=== PATIENT | male | born 1930 | race African-American/Black ===

== ENCOUNTER 2017-05-01 08:52 | Observation (INO) | payer OTHER ==
[~2017-05-01] VITALS: Ht 165.1 cm; Wt 98.5 kg
[~2017-05-01 08:52] MED LIST: Ascorbic Acid,Ester- PO; BACTRIM,SEPT1 TABLET PO; CLOPIDOGREL75 MG PO; Colace PO; Dulcolax PO; Flomax PO; Folvite PO; Lipitor PO; Oscal 500 w/Vitamin PO; PRINIVIL5 MG PO; Pepcid PO; SIMVASTATIN80 MG PO; Senokot S,Pericolace PO; TAMSULOSIN HCL0.4 MG PO; Theragran PO; Vitamin B-12 PO; Vitamin D PO; ZANTAC150 MG PO; Zestril,Prinivil PO; oxyCODONE PO
[2017-05-01 09:39] LABS: BASOPHIL COUNT 0.1 K/uL (0-0.1); EOSINOPHIL (%) 26.8 % (0-5); EOSINOPHIL COUNT 1.6 K/uL (0-0.3); HEMATOCRIT 39.6 % (38.0-50.0); IMMATURE GRANULOCYTE (%) 0.3 % (0.0-0.7); INSTRUMENT ABS NEUTROPHIL CT 2.2 K/uL; LYMPHOCYTE COUNT 1.5 K/uL (1.0-2.8); MCH 29.1 PG (29.0-34.0); MCHC 31.1 G/DL (30.0-36.0); MCV 93.8 FL (86-99); MEAN PLAT.VOLUME 9.1 uM^3 (9.0-12.4); MONOCYTE (%) 7.6 % (3-12); MONOCYTE COUNT 0.4 K/uL (0-0.8); NEUTROPHIL (%) 37.9 % (45-76); NEUTROPHIL COUNT 2.2 K/uL (1.8-6.4); PLATELET COUNT 197 K/uL (156-360); RBC DIS.WIDTH-CV 13.3 % (11.8-14.6); RBC DIS.WIDTH-SD 45.3 % (39-53); RED BLOOD COUNT 4.22 M/uL (4.00-5.50); WHITE BLOOD COUNT 5.8 K/uL (4.1-10.2)
[2017-05-01 09:54] LABS: CHLORIDE 109 mEq/L (99-109); SODIUM 143 mEq/L (136-147)
[2017-05-01 09:57] LABS: GLUCOSE 96 mg/dL (70-99)
[2017-05-01 09:58] LABS: ANION GAP 6 MEQ/L (2-14)
[2017-05-01 09:59] LABS: TOTAL BILIRUBIN 0.5 mg/dL (0.0-1.0)
[2017-05-01 10:00] LABS: ALKALINE PHOSPHATASE 43 IU/L (3-129); GFR ESTIMATE (CALCULATED) > 59 mL/min/; TROP-I INTERPRETATION NEGATIVE; TROPONIN-I 0.02 ng/mL (0.0-0.30)
[2017-05-01 10:01] LABS: UREA NITROGEN (BUN) 14 mg/dL (9-23)
[2017-05-01 10:35] LABS: D-DIMER ELISA > 4.00 mg/L FEU (< 0.57)
[2017-05-01 15:15] LABS: TROP-I INTERPRETATION NEGATIVE; TROPONIN-I 0.02 ng/mL (0.0-0.30)
[2017-05-01 15:53] VITALS: BP 140/68
[2017-05-01 16:43] LABS: EOSINOPHIL (%) 0.2 % (0-5); HEMATOCRIT 39.3 % (38.0-50.0); IMMATURE GRANULOCYTE (%) 0.6 % (0.0-0.7); INSTRUMENT ABS NEUTROPHIL CT 4.5 K/uL; LYMPHOCYTE COUNT 0.4 K/uL (1.0-2.8); MCH 29.3 PG (29.0-34.0); MCHC 31.3 G/DL (30.0-36.0); MCV 93.6 FL (86-99); MEAN PLAT.VOLUME 8.9 uM^3 (9.0-12.4); MONOCYTE (%) 0.6 % (3-12); NEUTROPHIL COUNT 4.5 K/uL (1.8-6.4); PLATELET COUNT 211 K/uL (156-360); RBC DIS.WIDTH-CV 13.4 % (11.8-14.6)
[2017-05-01 16:53] LABS: INTER. NORMALIZED RATIO 1.1; PROTHROMBIN TIME 11.4 (9.2-11.2); PTT 29.6 (25-32)
[2017-05-01 17:08] LABS: ANION GAP 11 MEQ/L (2-14); CHLORIDE 104 MEQ/L (99-109); GFR ESTIMATE (CALCULATED) 57 mL/min/; POTASSIUM 3.8 MEQ/L (3.7-5.4); SAMPLE HEMOLYSIS CHECK 0; SAMPLE ICTERIC CHECK 0; SAMPLE LIPEMIA CHECK 0; SODIUM 141 MEQ/L (136-147); UREA NITROGEN (BUN) 15 mg/dL (9-23)
[2017-05-01 17:12] LABS: GLUCOSE 172 mg/dL (70-99)
[2017-05-01 17:52] VITALS: BP 142/70
[2017-05-01 18:58] LABS: TROP-I INTERPRETATION NEGATIVE; TROPONIN-I 0.04 ng/mL (0.0-0.30)
[2017-05-01 20:57] LABS: ADD MIUA? YES; BILIRUBIN NEGATIVE; BLOOD SMALL; COLOR YELLOW ((YELLOW)); GLUCOSE (STRIP) NEGATIVE; KETONES NEGATIVE; LEUKOCYTES TRACE; NITRITE NEGATIVE; PROTEIN (STRIP) NEGATIVE; SPECIFIC GRAVITY 1.042 (1.000-1.030)
[2017-05-01] MEDS ORDERED: LISINOPRIL5 MG PO (21:19)
[2017-05-01] MEDS ORDERED: FLOMAX0.4 MG PO (21:20)
[2017-05-01] MEDS ORDERED: ZOCOR80 MG PO (21:21)
[2017-05-01] MEDS ORDERED: FUROSEMIDE20 MG PO (21:22)
[2017-05-01] MEDS ORDERED: PROAIR HFA8.5 GM IH (21:23)
[2017-05-01 21:56] LABS: EPITHELIAL CELLS RARE /HPF; RED BLOOD CELLS RARE /HPF (0-5); WHITE BLOOD CELLS 0-5 /HPF (0-5)
[2017-05-01 21:57] LABS: HYALINE CASTS RARE /LPF; MUCUS TRACE /LPF
[2017-05-01 22:17] LABS: BACTERIA 3+ /HPF; UCUL ADDED? NO
[2017-05-02] VITALS (7 sets, daily range): BP systolic 109–141; BP diastolic 60–72
[2017-05-02 01:29] LABS: TROP-I INTERPRETATION NEGATIVE; TROPONIN-I 0.03 ng/mL (0.0-0.30)
[2017-05-02 05:48] LABS: TROP-I INTERPRETATION NEGATIVE; TROPONIN-I 0.04 ng/mL (0.0-0.30)
[2017-05-02] MEDS ORDERED: CEFDINIR300 MG PO (07:49)
[2017-05-02] MEDS ORDERED: DUONEB 2.5-0.5 M3 ML AEROSOL (07:49)
[2017-05-02] MEDS ORDERED: AZITHROMYCIN500 M1 PO (07:49)
[2017-05-02] MEDS ORDERED: ADVAIR HFA120 INHALA IH (07:49)
[2017-05-02] MEDS ORDERED: AERONEB GO NEB1 EACH MC (07:49)
[2017-05-02] MEDS ORDERED: PREDNISONE10 MG PO (09:10)
[2017-05-03 00:03] VITALS: BP 131/67
[2017-05-03 05:22] VITALS: BP 126/73
[2017-05-03 06:16] LABS: HEMATOCRIT 32.7 % (38.0-50.0); MCH 30.1 PG (29.0-34.0); MCV 91.1 FL (86-99); MEAN PLAT.VOLUME 9.3 uM^3 (9.0-12.4); PLATELET COUNT 195 K/uL (156-360); RBC DIS.WIDTH-CV 13.7 % (11.8-14.6); RBC DIS.WIDTH-SD 46.3 % (39-53); RED BLOOD COUNT 3.59 M/uL (4.00-5.50); WHITE BLOOD COUNT 11.8 K/uL (4.1-10.2)
[2017-05-03 06:43] LABS: ANION GAP 7 MEQ/L (2-14); CHLORIDE 105 MEQ/L (99-109); GFR ESTIMATE (CALCULATED) > 59 mL/min/; GLUCOSE 125 mg/dL (70-99); POTASSIUM 4.5 MEQ/L (3.7-5.4); SAMPLE HEMOLYSIS CHECK 0; SAMPLE ICTERIC CHECK 0; SAMPLE LIPEMIA CHECK 0; SODIUM 138 MEQ/L (136-147)
[2017-05-03 06:44] LABS: UREA NITROGEN (BUN) 29 mg/dL (9-23)
[2017-05-03 07:02] VITALS: BP 128/75
== END 2017-05-03 11:54 | disposition home or self-care (01) ==
LOC: EME 08:52 → EDOF 15:06 → 2EAST 15:06 → 5WEST 15:50 → 2EAST 05-02 13:08
PROVIDERS: Emergency Medicine; Hospitalist; Physician Assistant Medical
DX: J44.1 Chronic obstructive pulmonary disease with (acute) exacerbation (principal); R09.02 Hypoxemia; I12.9 Hypertensive chronic kidney disease with stage 1 through stage 4 chronic kidney disease, or unspecified chronic kidney disease; N18.2 Chronic kidney disease, stage 2 (mild); N39.0 Urinary tract infection, site not specified; E86.0 Dehydration; I71.2 Thoracic aortic aneurysm, without rupture; E78.5 Hyperlipidemia, unspecified; I25.10 Atherosclerotic heart disease of native coronary artery without angina pectoris; I25.2 Old myocardial infarction; Z95.5 Presence of coronary angioplasty implant and graft; Z95.1 Presence of aortocoronary bypass graft; K21.9 Gastro-esophageal reflux disease without esophagitis; Z86.73 Personal history of transient ischemic attack (TIA), and cerebral infarction without residual deficits; H91.90 Unspecified hearing loss, unspecified ear; M79.89 Other specified soft tissue disorders; Z87.891 Personal history of nicotine dependence; Z79.01 Long term (current) use of anticoagulants; I51.7 Cardiomegaly; J90 Pleural effusion, not elsewhere classified
CPT/HCPCS: 71010; 71020; 71275; 80048; 80048 91; 80053; 81003; 83880; 84484; 85025; 85025 91; 85027; 85379; 85610; 85730; 87070; 87077; 87086; 87186; 87205; 93005; 94640; 94640 76; 94760; 99202; 99281; 99285; G0378; J0456; J0696; J1650; J2920; J2930; J7050

== ENCOUNTER 2017-12-31 11:01 | Emergency (ER) | payer OTHER ==
[~2017-12-31] VITALS: Ht 152.4 cm; Wt 98.7 kg
[~2017-12-31 11:01] MED LIST changes: +ADVAIR HFA120 INHALA IH; +AERONEB GO NEB1 EACH MC; +AZITHROMYCIN500 M1 PO; +CEFDINIR300 MG PO; +DUONEB 2.5-0.5 M3 ML AEROSOL; +FLOMAX0.4 MG PO; +FUROSEMIDE20 MG PO; +LISINOPRIL5 MG PO; +PREDNISONE10 MG PO; +PROAIR HFA8.5 GM IH; +ZOCOR80 MG PO
[2017-12-31 12:07] LABS: HEMATOCRIT 38.6 % (38.0-50.0); HEMOGLOBIN 12.5 G/DL (12.5-16.6); MCH 29.6 PG (29.0-34.0); MCHC 32.4 G/DL (30.0-36.0); MCV 91.3 FL (86-99); PLATELET COUNT 187 K/uL (156-360); RBC DIS.WIDTH-CV 13.7 % (11.8-14.6); RBC DIS.WIDTH-SD 46.4 % (39-53); RED BLOOD COUNT 4.23 M/uL (4.00-5.50); WHITE BLOOD COUNT 5.1 K/uL (4.1-10.2)
[2017-12-31 12:18] LABS: CHLORIDE 106 mEq/L (99-109); SODIUM 142 mEq/L (136-147)
[2017-12-31 12:20] LABS: GLUCOSE 90 mg/dL (70-99)
[2017-12-31 12:23] LABS: CREATININE 1.5 mg/dL (0.6-1.3)
[2017-12-31 12:24] LABS: UREA NITROGEN (BUN) 15 mg/dL (9-23)
[2017-12-31 12:29] LABS: GFR ESTIMATE (CALCULATED) 47 mL/min/ (58.99-99999); TROP-I INTERPRETATION NEGATIVE; TROPONIN-I 0.04 ng/mL (0.0-0.30)
[2017-12-31 16:59] LABS: TROP-I INTERPRETATION NEGATIVE; TROPONIN-I 0.04 ng/mL (0.0-0.30)
[2017-12-31 17:56] VITALS: BP 131/81
== END 2017-12-31 18:34 | disposition home or self-care (01) ==
LOC: EME 11:01 → RME 11:01
PROVIDERS: Physician Assistant
DX: M25.551 Pain in right hip (principal); R06.00 Dyspnea, unspecified; M71.21 Synovial cyst of popliteal space [Baker], right knee; I44.0 Atrioventricular block, first degree; I45.4 Nonspecific intraventricular block; I51.7 Cardiomegaly; I10 Essential (primary) hypertension; E78.5 Hyperlipidemia, unspecified; Z87.891 Personal history of nicotine dependence; Z95.5 Presence of coronary angioplasty implant and graft; Z90.49 Acquired absence of other specified parts of digestive tract
CPT/HCPCS: 71046; 73502; 80048; 83880; 84484; 85027; 93005; 93971; 99281; 99284

== ENCOUNTER 2018-05-31 22:39 | Inpatient (IN) | payer OTHER ==
[~2018-05-31] VITALS: Ht 170.2 cm; Wt 89.6 kg
[2018-05-31 23:16] LABS: HEMATOCRIT 35.4 % (38.0-50.0); HEMOGLOBIN 11.6 G/DL (12.5-16.6); MCH 29.9 PG (29.0-34.0); MCHC 32.8 G/DL (30.0-36.0); MCV 91.2 FL (86-99); PLATELET COUNT 183 K/uL (156-360); RBC DIS.WIDTH-CV 14.1 % (11.8-14.6); RBC DIS.WIDTH-SD 46.9 % (39-53); RED BLOOD COUNT 3.88 M/uL (4.00-5.50); WHITE BLOOD COUNT 6.8 K/uL (4.1-10.2)
[2018-05-31 23:22] LABS: INTER. NORMALIZED RATIO 1.1
[2018-05-31 23:24] LABS: PTT 29.2 SEC (25-37)
[2018-05-31 23:28] LABS: CHLORIDE 110 mEq/L (99-109); POTASSIUM 4.3 mEq/L (3.7-5.4); SODIUM 146 mEq/L (136-147)
[2018-05-31 23:29] LABS: GLUCOSE 98 mg/dL (70-99)
[2018-05-31 23:33] LABS: CREATININE 1.6 mg/dL (0.6-1.3); GFR ESTIMATE (CALCULATED) 53 mL/min/ (58.99-99999)
[2018-05-31 23:34] LABS: UREA NITROGEN (BUN) 17 mg/dL (9-23)
[2018-05-31 23:37] LABS: TROP-I INTERPRETATION NEGATIVE; TROPONIN-I 0.04 ng/mL (0.0-0.30)
[2018-06-01] VITALS (7 sets, daily range): BP systolic 114–156; BP diastolic 62–94
[2018-06-01 06:57] LABS: BASOPHIL (%) 0.3 % (0-1); EOSINOPHIL (%) 1.3 % (0-5); EOSINOPHIL COUNT 0.1 K/uL (0-0.3); HEMATOCRIT 37.9 % (38.0-50.0); IMMATURE GRANULOCYTE (%) 0.3 % (0.0-0.7); LYMPHOCYTE (%) 7.5 % (15-42); LYMPHOCYTE COUNT 0.5 K/uL (1.0-2.8); MCH 29.5 PG (29.0-34.0); MCHC 31.7 G/DL (30.0-36.0); MCV 93.1 FL (86-99); MONOCYTE (%) 1.5 % (3-12); MONOCYTE COUNT 0.1 K/uL (0-0.8); NEUTROPHIL (%) 89.1 % (45-76); NEUTROPHIL COUNT 5.4 K/uL (1.8-6.4); RBC DIS.WIDTH-CV 13.8 % (11.8-14.6); RBC DIS.WIDTH-SD 47.9 % (39-53); RED BLOOD COUNT 4.07 M/uL (4.00-5.50)
[2018-06-01 07:09] LABS: CHLORIDE 105 MEQ/L (99-109); CREATININE 1.6 MG/DL (0.6-1.3); GFR ESTIMATE (CALCULATED) 53 mL/min/ (58.99-99999); GLUCOSE 122 mg/dL (70-99); SODIUM 142 MEQ/L (136-147); UREA NITROGEN (BUN) 20 mg/dL (9-23)
[2018-06-01 07:17] LABS: PLAT.SUFFICIENCY ADEQUATE; PLATELET CLUMPS PRESENT - PLATELET COUNT APPEARS ADEQUATE
[2018-06-01 07:21] LABS: PLATELET COUNT UNABLE TO REPORT K/uL (156-360)
[2018-06-01] MEDS ORDERED: MYCOSTATIN 100,60 ML PO (09:01)
[2018-06-01] MEDS ORDERED: STIOLTO RESPIMAT4 GM IH (09:02)
[2018-06-01] MEDS ORDERED: B-121000 MC2 PO (09:03)
[2018-06-01] MEDS ORDERED: LASIX20 MG PO (09:03)
[2018-06-01] MEDS ORDERED: ZOCOR80 MG PO (09:03)
[2018-06-01] MEDS ORDERED: FLOMAX0.4 MG PO (09:04)
[2018-06-01] MEDS ORDERED: ANBESOL9 GM MM (09:04)
[2018-06-01] MEDS ORDERED: ZYRTEC10 M3 PO (09:05)
[2018-06-01] MEDS ORDERED: FLONASE16 G1 BOTH NARES (09:05)
[2018-06-01] MEDS ORDERED: TYLENOL EXTRA500 MG PO (09:06)
[2018-06-01] MEDS ORDERED: COLACE100 MG PO (09:06)
[2018-06-01] MEDS ORDERED: ZESTRIL5 MG PO (09:06)
[2018-06-01] MEDS ORDERED: CHILD ASPIRIN81 M1 PO (09:07)
[2018-06-02 03:37] VITALS: BP 118/64
[2018-06-02 07:08] VITALS: BP 104/60
[2018-06-02 11:26] VITALS: BP 120/68
[2018-06-02] MEDS ORDERED: LOPRESSOR25 MG PO (11:54)
[2018-06-02] MEDS ORDERED: LEVAQUIN750 MG PO (11:55)
== END 2018-06-02 15:15 | disposition home or self-care (01) | DRG 190 ==
LOC: EME 22:39 → EDOF 06-01 01:07 → 5SOUTH 06-01 01:07 → ENRESERV 06-01 01:08 → 5SOUTH 06-01 01:47
PROVIDERS: Emergency Medicine; Physician Assistant
DX: J44.0 Chronic obstructive pulmonary disease with (acute) lower respiratory infection (principal); J18.9 Pneumonia, unspecified organism; R60.0 Localized edema; I12.9 Hypertensive chronic kidney disease with stage 1 through stage 4 chronic kidney disease, or unspecified chronic kidney disease; N18.9 Chronic kidney disease, unspecified; I25.10 Atherosclerotic heart disease of native coronary artery without angina pectoris; J30.2 Other seasonal allergic rhinitis; E78.5 Hyperlipidemia, unspecified; K21.9 Gastro-esophageal reflux disease without esophagitis; Z95.5 Presence of coronary angioplasty implant and graft; Z87.891 Personal history of nicotine dependence
CPT/HCPCS: 71046; 80048; 83605; 83880; 84484; 85025; 85027; 85610; 85730; 87040; 87070; 87205; 87449; 93005; 93306; 93970; 94640; 94799; 99281; 99285; J1644; J1940; J1956; J2920; J2930